=== PATIENT | male | born 1950 | race Caucasian/White ===

== ENCOUNTER 2018-10-15 23:42 | Emergency (ER) | payer MEDICARE ==
--- NOTE | 2018-10-16 00:24 | ED ---
Shortness of Breath - HPI Summary HPI Summary: This patient is a 67 year old M presenting to ED with a chief complaint of difficulty breathing worse when lying down since 10/11/18. Patient drank alcohol all day on 10/11/18 per . She states the patient has a history of alcohol abuse. Patient saw his PCP on and was told he was in a-fib again. He was told to see his aging room hand for cardioversion. Patient has not been diagnosed in his sleep. He snores. He takes Eliquis once a day as prescribed. His last a-fib was a year ago. He has been cardioverted twice before. He does not have an AICD. The patient rates the pain 5/10 in severity. Symptoms aggravated by nothing. Symptoms alleviated by nothing. Patient denies feeling palpitations. - History of Current Complaint Chief Complaint: EDDysrhythmPalp Time Seen by Provider: 10/16/18 00:10 Hx Obtained From: Patient Onset/Duration: Still Present Timing: Constant Current Severity: Moderate Dyspnea At: Orthopena Aggravating Factors: Nothing Alleviating Factors: Nothing Associated Signs & Symptoms: Negative - Palpitations - Allergy/Home Medications Allergies/Adverse Reactions: Allergies Allergy/AdvReac Type Severity Reaction Status Date / Time No Known Allergies Allergy Verified 10/16/18 00:22 Home Medications: Home Medications Insulin Lispro [Humalog Kwikpen U-100] 16 units SUBCUT BID 10/16/18 [History Confirmed 10/16/18] PMH/Surg Hx/FS Hx/Imm Hx Endocrine/Hematology History: Reports: Hx Diabetes Denies: Hx Anticoagulant Therapy Cardiovascular History: Reports: Hx Atrial Fibrillation, Hx Coronary Artery Disease, Hx Hypercholesterolemia, Hx Hypertension, Hx Supraventricular Ventricular Tachycardia Musculoskeletal History: Reports: Hx Arthritis - Rheumatoid Arthritis Sensory History: Reports: Other Sensory Impairments Opthamlomology History: Reports: Other Sensory Impairments Psychiatric History: Denies: Hx Anxiety, Hx Panic Disorder - Surgical History Surgery Procedure, Year, and Place: cardiac cath Infectious Disease History: No Infectious Disease History: Denies: Traveled Outside the [place] in Last 30 Days - Family History Known Family History: Positive: Cardiac Disease - CAD in both mother and father - Social History Alcohol Use: Weekly Hx Substance Use: No Substance Use Type: Reports: None Hx Tobacco Use: No Smoking Status (MU): Never Smoked Tobacco Review of Systems Negative: Palpitations Positive: Shortness Of Breath All Other Systems Reviewed And Are Negative: Yes Physical Exam - Summary Physical Exam Summary: VITAL SIGNS: Reviewed. GENERAL: Patient is a well-developed and nourished male who is lying comfortable in the stretcher. Patient is not in any acute respiratory distress. Patient seems anxious, somewhat agitated HEAD AND FACE: No signs of trauma. No ecchymosis, hematomas or skull depressions. No sinus tenderness. EYES: PERRLA, EOMI x 2, No injected conjunctiva, no nystagmus. EARS: Hearing grossly intact. Ear canals and tympanic membranes are within normal limits. MOUTH: Oropharynx within normal limits. NECK: Supple, trachea is midline, no adenopathy, no JVD, no carotid bruit, no c- spine tenderness, neck with full ROM CHEST: Symmetric, no tenderness at palpation LUNGS: Clear to auscultation bilaterally. No wheezing or crackles. CVS: Irregularly irregular rate ABDOMEN: Soft, non-tender. No signs of distention. No rebound no guarding, and no masses palpated. Bowel sounds are normal. EXTREMITIES: FROM in all major joints, no edema, no cyanosis or clubbing. NEURO: Alert and oriented x 3. No acute neurological deficits. Speech is normal and follows commands. SKIN: Dry and warm Triage Information Reviewed: Yes Vital Signs On Initial Exam: Initial Vitals Temp Pulse Resp BP Pulse Ox 98.7 F 90 14 163/91 94 10/15/18 23:57 10/15/18 23:57 10/15/18 23:57 10/15/18 23:57 10/15/18 23:57 Vital Signs Reviewed: Yes Diagnostics - Vital Signs Vital Signs Temp Pulse Resp BP Pulse Ox 10/15/18 23:57 98.7 F 90 14 163/91 94 - Laboratory Result Diagrams: 10/16/18 00:54 10/16/18 00:54 Lab Statement: Any lab studies that have been ordered have been reviewed, and results considered in the medical decision making process. - Radiology CXR Radiology Interpretation Completed By: ED Physician Summary of Radiographic Findings: No acute processes, pending official radiology report. - EKG 2354 Cardiac Rate: NL - 89 BPM EKG Rhythm: Atrial Fibrillation Ectopy: PVCs Summary of EKG Findings: Atrial fibrillation flutter at 89 BPM, PVCs. 0154 Cardiac Rate: NL - 77 BPM EKG Rhythm: Sinus Rhythm EKG Comparison: Other - Successful cardioversion Summary of EKG Findings: NSR at 77 BPM, RBBB. Course/Dx - Course Course Of Treatment: This patient is a 67 year old M presenting to ED with a chief complaint of difficulty breathing worse when lying down since 10/11/18. He saw his PCP on 10/12/18 who took an EKG that revealed he was in a-fib. In the ED course, patient received Ativan. EKG at 2354 revealed atrial fibrillation flutter at 89 BPM, PVCs. CXR revealed no acute processes, pending official radiology report. Blood work obtained. I performed a moderate sedation and cardioversion procedure on the patient. Informed consent was obtained. The protocol for moderate sedation was followed. Patient received 100mg of fentanyl and 5mg of versed IV. Moderate sedation was accompished for procedure. Patient was cardioverted using synchronized current 100 joules. Patient was converted to sinus rhythm on the first attempt. No complications occurred, no reversal agent used. Time spent 15 minutes. Post-cardioversion EKG at 0154 revealed NSR at 77 BPM, RBBB. Patient will be discharged home with dx of atrial fibrillation. Patient understands and agrees with this plan. - Diagnoses Provider Diagnoses: Atrial fibrillation Discharge - Sign-Out/Discharge Documenting (check all that apply): Patient Departure - Discharge Patient Received Moderate/Deep Sedation with Procedure: Yes - Discharge Plan Condition: Stable Disposition: HOME Patient Education Materials: Atrial Flutter (ED), A-fib (Atrial Fibrillation) ( ED), Moderate Sedation (ED), Cardioversion (DC), Procedural Sedation (ED) Referrals: Jayjay Moralez MD [Medical Doctor] - Jennifer BRIGGS,Richard Aleman [Primary Care Provider] - Additional Instructions: Follow-up with your primary care provider and with a aging room hand in 2-3 days. RETURN TO THE ER FOR WORSENING OR CHANGING SYMPTOMS. - Attestation Statements Document Initiated by Scribe: Yes Documenting Scribe: Leeroy Mares Provider For Whom Scribe is Documenting (Include Credential): Ruthann Godinez MD Scribe Attestation: Leeroy Horowitz, scribed for Ruthann Godinez MD on 10/16/18 at 0326. Status of Scribe Document: Ready Procedure Note: Sedation - Sedation/Analgesia Informed Consent Obtained: Yes Plan for Sedation: Moderate Sedation Previous Problem with Sedation: No - Post Procedure Eval Total Sedation/Analgesia Time: Other - 15 min - Comments Additional Comments: I performed a moderate sedation procedure on the patient. Informed consent was obtained. The protocol for moderate sedation was followed. Patient received 100mg of fentanyl and 5mg of versed IV. Moderate sedation was accompished for procedure. No complications occurred, no reversal agent used. Time spent 15 minutes. Cardiology Procedure Note Cardioversion: Did moderate sedation. Patient was cardioverted using synchronized current 100 joules. Patient was converted to sinus rhythm on the first attempt.
[2018-10-16] MEDS ORDERED: Lorazepam PYXIS KEY PRN (00:29)
[2018-10-16] MEDS ORDERED: LORazepam INJ* 2 MG/ML 1 ML VIAL IV PUSH ONE (00:29)
[2018-10-16] MEDS ORDERED: Lorazepam PYXIS KEY ONE (00:43)
[2018-10-16 01:01] LABS: ABS Basophils 0.1 10^3/ul (0-0.2); ABS Eosinophils 0.1 10^3/ul (0-0.6); ABS Lymphocytes 1.2 10^3/ul (1.0-4.8); ABS Monocytes 0.4 10^3/ul (0-0.8); ABS Neutrophils 2.5 10^3/ul (1.5-7.7); Eosinophil % 3.4 %; Hematocrit 39 % (42-52); Hemoglobin 13.1 g/dL (14.0-18.0); Lymphocyte % 28.2 %; Mean Corpuscular HGB Conc 34 g/dL (31-36); Mean Corpuscular Hemoglobin 29 pg (27-31); Mean Corpuscular Volume 86 fL (80-94); Mean Platelet Volume 9.1 fL (7.4-10.4); Nucleated Red Blood Cells % 0.1; Platelet Count 175 10^3/uL (150-450); Red Blood Count 4.54 10^6 /uL (4.18-5.48); Red Cell Distribution Width 15 % (10-15); White Blood Count 4.3 10^3/uL (3.5-10.8)
[2018-10-16 01:21] LABS: Activated Partial Thrombo Time 31.9 seconds (26.0-38.0); INR 1.02 (0.82-1.09)
[2018-10-16 01:22] LABS: Alcohol < 10 mg/dL (<10)
[2018-10-16 01:23] LABS: ALT 23 U/L (7-52); AST 15 U/L (13-39); Albumin 3.9 g/dL (3.2-5.2); Albumin/Globulin Ratio 1.4 (1-3); Alkaline Phosphatase 57 U/L (34-104); Anion Gap 7 mmol/L (2-11); BUN/Creatinine Ratio 23.8 (8-20); Blood Urea Nitrogen 20 mg/dL (6-24); CO2 Carbon Dioxide 26 mmol/L (22-32); Calcium 9.4 mg/dL (8.6-10.3); Chloride 106 mmol/L (101-111); EGFR Non-African American 91.7 (>60); Globulin 2.7 g/dL (2-4); Glucose 226 mg/dL (70-100); Magnesium 1.9 mg/dL (1.9-2.7); Potassium 3.7 mmol/L (3.5-5.0); Sodium 139 mmol/L (135-145); Total Protein 6.6 g/dL (6.4-8.9)
[2018-10-16 01:25] LABS: Troponin I 0.01 ng/mL (<0.04)
[2018-10-16 01:38] LABS: TSH (Thyroid Stimulating Horm) 3.65 mcIU/mL (0.34-5.60)
[2018-10-16] MEDS ORDERED: fentaNYL* 50 MCG/ML 2 ML VIAL (100 MCG VIAL) ONE (01:41)
[2018-10-16] MEDS ORDERED: Midazolam* 1 MG/ML 5 ML VIAL (5 MG) ONE (01:41)
[2018-10-16 03:36] VITALS: BP 125/78
== END 2018-10-16 03:36 | disposition home or self-care (01) ==
LOC: ED 23:42
DX: I48.91 Unspecified atrial fibrillation (principal); R06.02 Shortness of breath; I25.10 Atherosclerotic heart disease of native coronary artery without angina pectoris; I10 Essential (primary) hypertension; I47.1 Supraventricular tachycardia; E78.00 Pure hypercholesterolemia, unspecified; E11.9 Type 2 diabetes mellitus without complications
CPT/HCPCS: 36415; 71045; 80053; 80320; 83735; 83880; 84443; 84484; 85025; 85379; 85610; 85730; 92960; 93005; 96374; 99285; G0480; J2060; J2250; J3010

== ENCOUNTER → 2018-10-18 19:25 | Emergency (ER) | payer MEDICARE ==
[~2018-10-18 19:25] MED LIST: ALPRAZolam TAB* 0.5 MG PO ONE
--- NOTE | 2018-10-18 23:08 | ED ---
Shortness of Breath - HPI Summary HPI Summary: 67 year old M presents to [facility] accompanied by with a chief complaint of shortness of breath onsetting one day ago. Patient reports he could not sleep last night and stayed up until 0530. He reports that he has had constant anxiety as well. Patient reports he slept well the day after his ED visit when he was cardioverted from Atrial flutter, per triage. Patient denies any pain, hx of anxiety, or consuming any alcohol since his last visit to the ED. Patient denies any change in his medication and currently takes Eliquis as a blood thinner. Patient intends to see PCP this Tuesday morning, 10/20/18. Symptoms aggravated by lying down. Symptoms alleviated by walking and sitting up. - History of Current Complaint Chief Complaint: EDShortnessOfBreath Time Seen by Provider: 10/18/18 22:28 Hx Obtained From: Patient Onset/Duration: Still Present Aggravating Factors: Recumbent Position Alleviating Factors: Upright Position, Other - walking Associated Signs & Symptoms: Negative - Allergy/Home Medications Allergies/Adverse Reactions: Allergies Allergy/AdvReac Type Severity Reaction Status Date / Time No Known Allergies Allergy Verified 10/18/18 19:30 PMH/Surg Hx/FS Hx/Imm Hx Endocrine/Hematology History: Reports: Hx Diabetes Denies: Hx Anticoagulant Therapy Cardiovascular History: Reports: Hx Atrial Fibrillation, Hx Coronary Artery Disease, Hx Hypercholesterolemia, Hx Hypertension Musculoskeletal History: Reports: Hx Arthritis - Rheumatoid Arthritis Sensory History: Reports: Other Sensory Impairments Opthamlomology History: Reports: Other Sensory Impairments Psychiatric History: Denies: Hx Anxiety, Hx Panic Disorder - Surgical History Surgery Procedure, Year, and Place: cardiac cath Infectious Disease History: No Infectious Disease History: Denies: Traveled Outside the [place] in Last 30 Days - Family History Known Family History: Positive: Cardiac Disease - CAD in both mother and father - Social History Alcohol Use: Weekly Hx Substance Use: No Substance Use Type: Reports: None Hx Tobacco Use: No Smoking Status (MU): Never Smoked Tobacco Review of Systems Positive: Shortness Of Breath Positive: Anxious All Other Systems Reviewed And Are Negative: Yes Physical Exam - Summary Physical Exam Summary: VITAL SIGNS: Reviewed. GENERAL: Patient is a well-developed and nourished MALE who is lying comfortable in the stretcher. Patient is not in any acute respiratory distress. HEAD AND FACE: No signs of trauma. No ecchymosis, hematomas or skull depressions. No sinus tenderness. EYES: PERRLA, EOMI x 2, No injected conjunctiva, no nystagmus. EARS: Hearing grossly intact. Ear canals and tympanic membranes are within normal limits. MOUTH: Oropharynx within normal limits. NECK: Supple, trachea is midline, no adenopathy, no JVD, no carotid bruit, no c- spine tenderness, neck with full ROM CHEST: Symmetric, no tenderness at palpation LUNGS: Clear to auscultation bilaterally. No wheezing or crackles. CVS: Regular rate and rhythm, S1 and S2 present, no murmurs or gallops appreciated. ABDOMEN: Soft, non-tender. No signs of distention. No rebound no guarding, and no masses palpated. Bowel sounds are normal. EXTREMITIES: FROM in all major joints, no edema, no cyanosis or clubbing. NEURO: Alert and oriented x 3. No acute neurological deficits. Speech is normal and follows commands. SKIN: Dry and warm Psych: Anxious Triage Information Reviewed: Yes Vital Signs On Initial Exam: Initial Vitals Temp Pulse Resp BP Pulse Ox 98.6 F 87 20 171/95 94 10/18/18 19:26 10/18/18 19:26 10/18/18 19:26 10/18/18 19:26 10/18/18 19:26 Vital Signs Reviewed: Yes Diagnostics - Vital Signs Vital Signs Temp Pulse Resp BP Pulse Ox 10/18/18 21:35 98 F 69 18 153/82 94 10/18/18 19:26 98.6 F 87 20 171/95 94 - Laboratory Result Diagrams: 10/18/18 23:46 10/18/18 23:46 Lab Statement: Any lab studies that have been ordered have been reviewed, and results considered in the medical decision making process. - EKG 2329 Cardiac Rate: NL - 72 BPM EKG Rhythm: Sinus Rhythm Summary of EKG Findings: Sinus Rhythm at 72 BPM, Right bundle branch block 1931 Cardiac Rate: NL - rate of 82 BPM EKG Rhythm: Sinus Rhythm Summary of EKG Findings: Sinus Rhythm at 82 BPM, Right bundle branch block Re-Evaluation - Re-Evaluation First Eval Re-Evaluation Time: 12:51 Comment: Physician discusses plan of care with patient. Course/Dx - Course Course Of Treatment: 67 year old M presents to [facility] accompanied by with a chief complaint of shortness of breath onsetting one day ago. Patient reports he could not sleep last night and stayed up until 0530. He reports that he has had constant anxiety as well. Patient reports he slept well the day after his ED visit 10/15/18 when he was cardioverted from Atrial flutter, per triage. Patient denies any pain, hx of anxiety, or consuming any alcohol since his last visit to the ED. Patient denies any change in his medication and currently takes Eliquis as a blood thinner. Physical Exam shows no abnormalities except that he is anxious. Blood work shows no abnormalities except for Hgb 13.7 L, Hct 41 L, BUN/Creatinine Ratio 23.1 H, and Glucose 120 H. First EKG showed sinus thythm at 82 BPM, Rtght bundle branch block. Second EKG reveals sinus rhythm at 72 BPM and right bundle branch block. Physician discusses discharge with patient who agrees with discharge. Patient will be discharged. Patient intends to follow up with PCP within 3 days. - Diagnoses Provider Diagnoses: Anxiety Discharge - Sign-Out/Discharge Documenting (check all that apply): Patient Departure - discharge Patient Received Moderate/Deep Sedation with Procedure: No - Discharge Plan Condition: Stable Disposition: HOME Prescriptions: ALPRAZolam TAB* [Xanax TAB*] 0.5 mg PO BID PRN #10 tab MDD 2 PRN Reason: Anxiety Patient Education Materials: Anxiety (ED) Referrals: Subhash BRIGGS,Pranav Aleman [Primary Care Provider] - 3 Days Additional Instructions: PLEASE RETURN TO ED FOR ANY NEW OR WORSENING SYMPTOMS. FOLLOW UP WITH YOUR PRIMARY CARE PHYSICIAN WITHIN THREE DAYS. - Attestation Statements Document Initiated by Scribe: Yes Documenting Scribe: Nat Molina Provider For Whom Shaun is Documenting (Include Credential): Ruthann Godienz MD Scribe Attestation: I, Nat Molina, scribed for Ruthann Godinez MD on 10/19/18 at 0733. Status of Scribe Document: Ready
[2018-10-18 23:54] LABS: ABS Eosinophils 0.2 10^3/ul (0-0.6); ABS Lymphocytes 1.1 10^3/ul (1.0-4.8); ABS Monocytes 0.4 10^3/ul (0-0.8); ABS Neutrophils 3.2 10^3/ul (1.5-7.7); Eosinophil % 3.7 %; Hematocrit 41 % (42-52); Hemoglobin 13.7 g/dL (14.0-18.0); Mean Corpuscular HGB Conc 33 g/dL (31-36); Mean Corpuscular Hemoglobin 29 pg (27-31); Mean Corpuscular Volume 86 fL (80-94); Mean Platelet Volume 8.7 fL (7.4-10.4); Platelet Count 180 10^3/uL (150-450); Red Blood Count 4.75 10^6 /uL (4.18-5.48); Red Cell Distribution Width 15 % (10-15); White Blood Count 4.8 10^3/uL (3.5-10.8)
[2018-10-19 00:02] LABS: Activated Partial Thrombo Time 34.4 seconds (26.0-38.0); INR 1.07 (0.82-1.09)
[2018-10-19 00:19] LABS: Albumin 4.2 g/dL (3.2-5.2); Albumin/Globulin Ratio 1.6 (1-3); BUN/Creatinine Ratio 23.1 (8-20); Calcium 9.6 mg/dL (8.6-10.3); EGFR African American 120.9 (>60); EGFR Non-African American 99.9 (>60); Globulin 2.7 g/dL (2-4); Potassium 3.7 mmol/L (3.5-5.0); Total Bilirubin 0.4 mg/dL (0.2-1.0); Total Protein 6.9 g/dL (6.4-8.9)
[2018-10-19 04:48] VITALS: BP 129/79
== END | disposition home or self-care (01) ==
LOC: ED 19:25
DX: F41.9 Anxiety disorder, unspecified (principal); R06.02 Shortness of breath; I45.10 Unspecified right bundle-branch block; E11.9 Type 2 diabetes mellitus without complications; I25.10 Atherosclerotic heart disease of native coronary artery without angina pectoris; I10 Essential (primary) hypertension; M06.9 Rheumatoid arthritis, unspecified; Z79.01 Long term (current) use of anticoagulants
CPT/HCPCS: 36415; 80053; 83880; 84484; 85025; 85610; 85730; 93005; 99283; A9270-GY